=== PATIENT | male | born 1940 | race Caucasian/White ===

== ENCOUNTER → 2023-09-20 09:47 | Outpatient (REF) | payer OTHER, SELFPAY ==
[2023-09-20 10:34] LABS: % Basophils 0.9 % (0-2); % Eosinophils 1.1 % (0-6); % Immature Granulocytes 0.3 % (0-0.5); % Lymphocytes 15.7 % (20.5-51.1); % Monocytes 6.3 % (1.7-9.3); % Neutrophils 75.7 % (42.2-75.2); Absolute Basophils 0.1 10^3/uL (0-0.2); Absolute Eosinophils 0.1 10^3/uL (0-0.7); Absolute Monocytes 0.4 10^3/uL (0.1-0.6); Hematocrit 41.6 % (39.0-52.0); Hemoglobin 13.9 g/dL (13.0-18.0); Mean Corp Hgb Conc. 33.4 g/dL (33.0-37.0); Mean Corpuscular Hgb 30.4 pg (27.0-31.0); Mean Platelet Volume 10.1 fL (7.4-10.4); Nucleated Red Blood Cells % 0 % (-); Platelet Count 277 10^3/uL (130-400); Red Blood Cell Count 4.57 10^6/uL (4.70-6.10); Red Cell Dist. Width 13.4 % (11.5-14.5); White Blood Cell Count 6.6 10^3/uL (4.8-10.8)
[2023-09-20 13:33] LABS: ALT (SGPT) 17 U/L (0-50); AST (SGOT) 29 U/L (17-59); Albumin 4.4 g/dl (3.5-5.0); Alkaline Phosphatase 71 U/L (38-126); Blood Urea Nitrogen 28 mg/dl (9-20); Calcium 9.8 mg/dl (8.4-10.2); Carbon Dioxide 28 mmol/L (22-30); Chloride 100 mmol/L (98-107); Glucose 89 mg/dl (70-99); Potassium 4.9 mmol/L (3.5-5.1); Sodium 135 mmol/L (135-145); Total Bilirubin 0.4 mg/dl (0.2-1.3); Total Protein 7.2 g/dl (6.3-8.2); eGFR > 60.00
== END ==
LOC: REG 09:47
PROVIDERS: ATTENDING PHYSICIAN Internal Medicine Hematology & Oncology
DX: C67.2 Malignant neoplasm of lateral wall of bladder (principal); I82.401 Acute embolism and thrombosis of unspecified deep veins of right lower extremity
CPT/HCPCS: 36415; 80053; 85025

== ENCOUNTER → 2024-03-26 10:07 | Outpatient (REF) | payer OTHER, SELFPAY ==
[2024-03-26 11:06] LABS: % Basophils 0.8 % (0-2); % Eosinophils 1.1 % (0-6); % Immature Granulocytes 0.2 % (0-0.5); % Lymphocytes 14.7 % (20.5-51.1); % Monocytes 7.6 % (1.7-9.3); % Neutrophils 75.6 % (42.2-75.2); Absolute Basophils 0.1 10^3/uL (0-0.2); Absolute Eosinophils 0.1 10^3/uL (0-0.7); Absolute Lymphocytes 1.3 10^3/uL (1.2-3.4); Absolute Monocytes 0.7 10^3/uL (0.1-0.6); Absolute Neutrophils 6.6 10^3/uL (1.4-6.5); Hematocrit 44.4 % (39.0-52.0); Hemoglobin 14.2 g/dL (13.0-18.0); Mean Corpuscular Hgb 29.2 pg (27.0-31.0); Mean Corpuscular Volume 91.2 fL (80.0-94.0); Mean Platelet Volume 10.4 fL (7.4-10.4); Nucleated Red Blood Cells % 0 % (-); Platelet Count 255 10^3/uL (130-400); Red Blood Cell Count 4.87 10^6/uL (4.70-6.10); Red Cell Dist. Width 14.3 % (11.5-14.5); White Blood Cell Count 8.8 10^3/uL (4.8-10.8)
[2024-03-26 11:38] LABS: ALT (SGPT) 20 U/L (0-50); AST (SGOT) 28 U/L (17-59); Albumin 4.7 g/dl (3.5-5.0); Alkaline Phosphatase 64 U/L (38-126); Blood Urea Nitrogen 29 mg/dl (9-20); Carbon Dioxide 32 mmol/L (22-30); Chloride 100 mmol/L (98-107); Glucose 80 mg/dl (70-99); Potassium 5.3 mmol/L (3.5-5.1); Sodium 142 mmol/L (135-145); Total Bilirubin 0.7 mg/dl (0.2-1.3); Total Protein 7.5 g/dl (6.3-8.2); eGFR > 60.00
== END ==
LOC: REG 10:07
PROVIDERS: ATTENDING PHYSICIAN Internal Medicine Hematology & Oncology
DX: C67.2 Malignant neoplasm of lateral wall of bladder (principal)
CPT/HCPCS: 36415; 80053; 85025

== ENCOUNTER → 2024-03-29 09:36 | Outpatient (REF) | payer OTHER, SELFPAY | LOC: PET 09:36 | PROVIDERS: ATTENDING PHYSICIAN Internal Medicine Hematology & Oncology | DX: C67.2 Malignant neoplasm of lateral wall of bladder (principal) | CPT/HCPCS: 78815; A9552 ==

== ENCOUNTER 2024-04-26 09:48 | Emergency (ER) | payer OTHER, SELFPAY ==
[2024-04-26 10:04] VITALS: BP 132/88
[2024-04-26 10:50] VITALS: BMI 25.9
[2024-04-26 11:03] VITALS: BP 123/76
--- NOTE | 2024-04-26 11:12 | ED.GENMED ---
History of Present Illness
General
Chief Complaint: Abdominal Pain
Source: patient
Time Seen by Provider: 04/26/24 10:56
History of Present Illness
History of Present Illness:
83yoM with a history of atrial fibrillation on Eliquis, bladder cancer s/p cystectomy with ileal conduit, and prostate cancer s/p prostatectomy presenting for evaluation of abdominal pain. Patient reports pain in his left lower quadrant for the
past 4 to 5 days. Pain has been constant and is nonradiating. Pain is worse with position changes. He has a history of diverticulitis in the past and this feels similar. He denies any fevers, chills, nausea, vomiting, diarrhea. He is currently
in remission from cancer for the past 2 years.
Past History
Past History
ED Past Medical History: Arrthythmia (SVT), Cancer (advanced bladder) and Other (anemia, DVT)
ED Past Surgical History: Urological
Social History
Tobacco: Non-smoker
Alcohol: None
Drug: None
Family History
Family History: Negative Diabetes, Hypertension or CAD
Phy Exam
General Physical Exam
General Presentation: well appearing and no apparent distress
General age: appears stated age
General Skin: warm and dry
General Habitus: normal
General Mental: alert
ENT Exam
ENT Exam: normocephalic
Pulmonary Exam
Pulmonary Exam: no respiratory distress
Gastrointestinal Exam
Gastrointestinal Exam: soft, non distended and other (+Tenderness in LLQ. Abdomen soft, non-distended. No rebound tenderness or guarding. )
Neurological Exam
Neurological Exam: alert
[place] Coma Scale
Eye Opening: Spontaneous
Verbal Response: Oriented
Motor Response: Obeys Commands
GCS Total Score: 15
Skin Exam
Skin Exam: normal color and warm/dry
Psychiatric Exam
Psychiatric Exam: normal mood/affect
Course
Orders/Labs/Results
Orders:
Orders
04/26/24 11:01
Complete Blood Count/With Diff Urgent
Comprehensive Metabolic Panel Urgent
04/26/24 11:09
Iohexol [Omnipaque] See Protocol PO NOW STA
04/26/24 11:10
CT Abd/pel W Iv And Oral Contr Urgent
Comment:
Reason For Exam: LLQ pain
Abnormal Lab Results
04/26/24
11:01
RBC 4.57 L 10^6/uL
(4.70-6.10)
MCV 95.2 H fL
(80.0-94.0)
MCH 31.1 H pg
(27.0-31.0)
MCHC 32.6 L g/dL
(33.0-37.0)
Abs Immat Gran (auto) 0.1 H 10^3/uL
(0-0.05)
Absolute Neuts (auto) 8.7 H 10^3/uL
(1.4-6.5)
Absolute Lymphs (auto) 1.0 L 10^3/uL
(1.2-3.4)
Absolute Monos (auto) 0.8 H 10^3/uL
(0.1-0.6)
Neutrophils % 80.9 H %
(42.2-75.2)
Lymphocytes % 8.9 L %
(20.5-51.1)
BUN 27 H mg/dl
(9-20)
04/26/24 11:01
04/26/24 11:01
Vital Signs
Initial and Last Documented VS:
Initial Vital Signs
Temp Pulse Resp BP Pulse Ox
98.6 F 103 18 132/88 99
04/26/24 10:04 04/26/24 10:04 04/26/24 10:04 04/26/24 10:04 04/26/24 10:04
Last Documented Vital Signs
Temp Pulse Resp BP Pulse Ox
98.4 F 85 19 135/79 98
04/26/24 15:26 04/26/24 15:26 04/26/24 15:26 04/26/24 15:26 04/26/24 15:26
MDM/Problems Addressed
Differential Diagnosis Includes:
83yoM here with LLQ pain x 4-5 days. Hx of diverticulitis and this feels the same. No f/c. VSS. He is well-appearing in no acute distress. No signs of peritonitis on abdominal exam. Differential diagnosis includes but is not limited to:
Diverticulitis, colitis, constipation, kidney stone, nonspecific abdominal pain
Initial ED plan: Check abdominal labs and CT abdomen with IV/PO contrast.
*Critical Care Note
Total Time (30-74mins, 75-104mins- exclusive of procedures): Not Applicable
Update Note
Update Note:
Labs overall unremarkable including normal white count, renal function, and LFTs. CT shows elongated segment of thickening of the distal descending and proximal sigmoid colon with stranding. Findings most likely represent diverticulitis, colitis
of other etiology cannot be excluded. No evidence of abscess or perforation. Patient is not requiring any pain medications during ED stay. No indication for hospitalization. Will cover with Augmentin x 10 days. Supportive care discussed
including clear liquid diet. Advised close follow-up with PCP and strict ED return precautions discussed. He expressed understanding and is agreement with plan. He was discharged stable condition.
ED Attending Note
-
Portions of this chart may have been created with voice recognition software.� Occasional wrong word or��sound alike� substitutions may have occurred due to the inherent limitations of voice recognition software.
Discharge Plan
Departure
Patient Disposition: Home (Routine Discharge)
Date of Disposition: 04/26/24
Time of Disposition: 14:55
Patient with high blood pressure during this ER visit?: No
Discharge Problem:
Acute diverticulitis
Instructions: Diverticulitis (DC)
Prescriptions:
New
amoxicillin-pot clavulanate 875-125 mg tablet
1 tab PO BID Qty: 20 0RF
No Action
multivitamin with folic acid [Tab-A-Alexandro] 1 TABLET tablet
1 tab PO DAILY
polyethylene glycol 3350 17 GRAMS powder in packet
17 grams PO DAILYPRN PRN (Reason: constipation)
calcium carbonate [Oyster Shell Calcium 500] 500 MG tablet
500 mg PO DAILY
docusate sodium 100 MG capsule
100 mg PO BIDPRN PRN (Reason: constipation)
metoprolol succinate 25 MG tablet extended release 24 hr
25 mg PO DAILY
acetaminophen 325 MG tablet
975 mg PO Q8H
warfarin [Jantoven] 5 MG tablet
2.5 mg PO QPM
gabapentin 300 MG capsule
300 mg PO TID
Patient Comments:
12/15/2020: Pt just finished 7 day supply today.
Referrals:
Jennifer Mendoza DO [Family Provider] -
Activity Restrictions/Additional Instructions:
Take antibiotics as prescribed. Eat a clear liquid diet until pain improves.
Please follow-up with your family doctor. Return to the ER with any worsening symptoms, severe pain, fevers, chills.
Interventions
Interventions:
*Risk Screen - Suicide Last Done: 04/26/24 10:04
*General Assessment Last Done: 04/26/24 10:04
*Neglect/Abuse Screening Last Done: 04/26/24 10:04
ED- Fall Risk Assessment Last Done: 04/26/24 15:26
*ED COVID-19 Vaccine History Last Done: 04/26/24 15:26
*Nursing Disposition Last Done: 04/26/24 15:26
[facility]-Ansrnv-Oktvammibh Assessment Last Done: 04/26/24 10:50
Discharge Date and Time
Discharge Date/Time: 04/26/24 15:28
Print Language: ITALIAN
[2024-04-26 11:23] LABS: % Basophils 0.6 % (0-2); % Eosinophils 1.4 % (0-6); % Immature Granulocytes 0.5 % (0-0.5); % Lymphocytes 8.9 % (20.5-51.1); % Monocytes 7.7 % (1.7-9.3); % Neutrophils 80.9 % (42.2-75.2); Absolute Basophils 0.1 10^3/uL (0-0.2); Absolute Eosinophils 0.2 10^3/uL (0-0.7); Absolute Immature Granulocytes 0.1 10^3/uL (0-0.05); Absolute Monocytes 0.8 10^3/uL (0.1-0.6); Absolute Neutrophils 8.7 10^3/uL (1.4-6.5); Hematocrit 43.5 % (39.0-52.0); Hemoglobin 14.2 g/dL (13.0-18.0); Mean Corp Hgb Conc. 32.6 g/dL (33.0-37.0); Mean Corpuscular Hgb 31.1 pg (27.0-31.0); Mean Corpuscular Volume 95.2 fL (80.0-94.0); Mean Platelet Volume 10.4 fL (7.4-10.4); Nucleated Red Blood Cells % 0 % (-); Platelet Count 233 10^3/uL (130-400); Red Blood Cell Count 4.57 10^6/uL (4.70-6.10); Red Cell Dist. Width 13.8 % (11.5-14.5); White Blood Cell Count 10.8 10^3/uL (4.8-10.8)
[2024-04-26 11:36] LABS: ALT (SGPT) 15 U/L (0-50); AST (SGOT) 24 U/L (17-59); Albumin 4.4 g/dl (3.5-5.0); Alkaline Phosphatase 84 U/L (38-126); Blood Urea Nitrogen 27 mg/dl (9-20); Calcium 9.3 mg/dl (8.4-10.2); Carbon Dioxide 30 mmol/L (22-30); Chloride 99 mmol/L (98-107); Estimated Creatinine Clearance 51 ml/min; Glucose 99 mg/dl (70-99); Potassium 4.8 mmol/L (3.5-5.1); Sodium 139 mmol/L (135-145); Total Bilirubin 1.2 mg/dl (0.2-1.3); Total Protein 7.2 g/dl (6.3-8.2); eGFR > 60.00
[2024-04-26] MEDS: OMNIPAQUE 50 ML PO (11:37)
[2024-04-26 15:26] VITALS: BP 135/79
== END 2024-04-26 15:28 | disposition home or self-care (01) ==
LOC: EMR 09:48
PROVIDERS: EMERGENCY PHYSICIAN Emergency Medicine; FAMILY PHYSICIAN Hospitalist
DX: K57.32 Diverticulitis of large intestine without perforation or abscess without bleeding (principal); I48.91 Unspecified atrial fibrillation; Z79.01 Long term (current) use of anticoagulants; Z85.46 Personal history of malignant neoplasm of prostate; Z85.51 Personal history of malignant neoplasm of bladder; Z86.718 Personal history of other venous thrombosis and embolism; Z90.6 Acquired absence of other parts of urinary tract; Z90.79 Acquired absence of other genital organ(s)
CPT/HCPCS: 99284; 74177; 80053; 85025; Q9967

== ENCOUNTER → 2024-09-26 09:49 | Outpatient (REF) | payer OTHER, SELFPAY ==
[2024-09-26 09:36] LABS: % Basophils 0.9 % (0-2); % Eosinophils 1.5 % (0-6); % Immature Granulocytes 0.3 % (0-0.5); % Lymphocytes 16.6 % (20.5-51.1); % Monocytes 8.5 % (1.7-9.3); % Neutrophils 72.2 % (42.2-75.2); Absolute Basophils 0.1 10^3/uL (0-0.2); Absolute Eosinophils 0.1 10^3/uL (0-0.7); Absolute Lymphocytes 1.1 10^3/uL (1.2-3.4); Absolute Monocytes 0.6 10^3/uL (0.1-0.6); Absolute Neutrophils 4.7 10^3/uL (1.4-6.5); Hematocrit 43.5 % (39.0-52.0); Hemoglobin 14.2 g/dL (13.0-18.0); Mean Corp Hgb Conc. 32.6 g/dL (33.0-37.0); Mean Corpuscular Hgb 29.3 pg (27.0-31.0); Mean Corpuscular Volume 89.7 fL (80.0-94.0); Mean Platelet Volume 10.6 fL (7.4-10.4); Nucleated Red Blood Cells % 0 % (-); Platelet Count 240 10^3/uL (130-400); Red Blood Cell Count 4.85 10^6/uL (4.70-6.10); Red Cell Dist. Width 15.9 % (11.5-14.5); White Blood Cell Count 6.5 10^3/uL (4.8-10.8)
[2024-09-26 10:26] LABS: ALT (SGPT) 15 U/L (0-50); AST (SGOT) 25 U/L (17-59); Albumin 4.4 g/dl (3.5-5.0); Alkaline Phosphatase 65 U/L (38-126); Blood Urea Nitrogen 32 mg/dl (9-20); Calcium 9.4 mg/dl (8.4-10.2); Carbon Dioxide 28 mmol/L (22-30); Chloride 104 mmol/L (98-107); Glucose 98 mg/dl (70-99); Potassium 4.8 mmol/L (3.5-5.1); Sodium 142 mmol/L (135-145); Total Bilirubin 0.7 mg/dl (0.2-1.3); eGFR > 60.00
== END ==
LOC: PET 09:49
PROVIDERS: ATTENDING PHYSICIAN Internal Medicine Hematology & Oncology
DX: C67.2 Malignant neoplasm of lateral wall of bladder (principal)
CPT/HCPCS: 36415; 80053; 85025

== ENCOUNTER → 2025-04-24 09:06 | Outpatient (REF) | payer OTHER, SELFPAY ==
[2025-04-24 10:28] LABS: Hematocrit 46.4 % (39.0-52.0); Hemoglobin 15.1 g/dL (13.0-18.0); Mean Corp Hgb Conc. 32.5 g/dL (33.0-37.0); Mean Corpuscular Volume 96.3 fL (80.0-94.0); Nucleated Red Blood Cells % 0 % (-); Platelet Count 243 10^3/uL (130-400); Red Cell Dist. Width 13.4 % (11.5-14.5)
[2025-04-24 11:14] LABS: ALT (SGPT) 18 U/L (0-50); AST (SGOT) 26 U/L (17-59); Albumin 4.6 g/dl (3.5-5.0); Alkaline Phosphatase 70 U/L (38-126); Blood Urea Nitrogen 27 mg/dl (9-20); Calcium 9.6 mg/dl (8.4-10.2); Carbon Dioxide 31 mmol/L (22-30); Chloride 100 mmol/L (98-107); Glucose 90 mg/dl (70-99); Potassium 4.7 mmol/L (3.5-5.1); Sodium 137 mmol/L (135-145); Total Protein 7.7 g/dl (6.3-8.2); eGFR > 60.00
== END ==
LOC: REG 09:06
PROVIDERS: ATTENDING PHYSICIAN Internal Medicine Hematology & Oncology; FAMILY PHYSICIAN Hospitalist
DX: C67.2 Malignant neoplasm of lateral wall of bladder (principal); I82.401 Acute embolism and thrombosis of unspecified deep veins of right lower extremity
CPT/HCPCS: 36415; 80053; 85025